=== PATIENT | female | born 1980 | race Caucasian/White ===

== ENCOUNTER 2017-11-17 13:18 | Outpatient (CLI) | payer OTHER ==
[2015-06-22 12:49] VITALS: BP 155/113
--- NOTE | 2017-11-22 14:00 | OP Clinic Progress Note ---
REASON FOR VISIT: Tiffanie is seen in the clinic with complaints of nasal congestion and stuffiness , ear pain and discomfort, some imbalance, and a neck ache. She has had problems for easily over 15 years and has taken antihistamines on a regular basis. She considered it one time but did not go to see an director of physical security. She tried to use a Neti pot by irrigating her nose but was not able to do that. Although she can get air through her nose intermittently. Overall, the right and the left side bother her about the same, although it switches back and forth as far as her nasal obstructive symptoms and pressure and discomfort. She also has some headaches more over the right eyebrow. Clinically, she snores extremely heavily and may have sleep apnea. She declines sleep studies. Clinically, she has huge inferior turbinates and a mild septal deviation. PLAN: If the etiology is allergic or just more of a chronic rhinitis, it is difficult to tell at this point. Options of doing nothing, seeing an director of physical security, keep on taking medications, and having surgery have been given to her. She has tried Flonase and she may try an additional spray that she has but she is not sure of the name of it. She would like to go ahead and get a CT scan in 2 or 3 weeks and we can simply go back over her options. Seeing an director of physical security is clearly an option. I have pointed out the positive aspect of that and some sinonasal surgery also does not solve the nasal membrane issues, but almost always can obtain at least a significantly improved nasal airway. Again, over the next several weeks, she will consider her options and get a CT scan and we will review these choices again. cc: Dr. Beulah DONNELLY
== END 2017-11-17 13:20 ==
LOC: ENT 13:18
PROVIDERS: ATTEND Otolaryngology
DX: J32.9 Chronic sinusitis, unspecified (principal)
CPT/HCPCS: 99213

== ENCOUNTER 2017-12-08 14:35 | Outpatient (CLI) | payer OTHER ==
[2015-06-22 12:49] VITALS: BP 155/113
--- NOTE | 2017-12-13 10:26 | OP Clinic Progress Note ---
REASON FOR VISIT: This 37-year-old female was seen in clinic in follow up of her issues regarding rhinosinusitis, nasal airway obstruction, cephalgia, facial pressure and discomfort, postnasal drainage, mouth breathing, and snoring as her issues, in addition to other complaints. She has significant major facial pressure and discomfort. She has mouth breathing and snoring. She has diffuse rhinitis. I reviewed her CT with her which has a fairly significant amount of mucosal thickening diffusely through the nose, some septal deviation, and some generalized mucosal thickening in both the ethmoid and maxillary sinuses. PLAN: I went over options and choices including doing nothing at all, seeing an major gifts officer with the idea of taking desensitization shots, ongoing use of medications, which would be decongestants, antihistamines, topical steroids, nasal sprays, nasal irrigations, Montelukast, and having nasal surgery. Risks and relative indications both for the surgery and all the other treatment modalities were reviewed. The patient understands that she is more than welcome to additional opinions. At least, she has a good understanding. Again , I went over the aspects of surgery so that she could have a clearer option of choices. She understands there is absolutely no guarantee of improvement, a small chance of nasal septal perforation, intraorbital and intracranial complications, postoperative pain and discomfort, washing and cleaning. Patient states she has a pretty good understanding. I encouraged her to discuss this with her spouse and if she comes back to come with her spouse and I would be more than happy to go over the same issues and would encourage her to do so. She is not given a specific appointment to come back but if she chooses to, it will be by her own election. cc: Dr. Beulah DONNELLY
== END 2017-12-08 14:36 ==
LOC: ENT 14:35
PROVIDERS: ATTEND Otolaryngology
DX: J32.9 Chronic sinusitis, unspecified (principal); J34.89 Other specified disorders of nose and nasal sinuses
CPT/HCPCS: 99213

== ENCOUNTER 2018-10-11 14:54 | Emergency (ER) | payer OTHER ==
[2018-10-11] MEDS ORDERED: 0.9 % SODIUM CHLORIDE 1,000 ML IV ONE (15:13)
[2018-10-11] MEDS ORDERED: ONDANSETRON HCL/PF 4 MG/ 2ML VIAL IVP ONE (15:13)
--- NOTE | 2018-10-11 15:20 | ED Physician Documentation ---
Abdominal Pain - HISTORIAN Historian: patient - HPI Stated Complaint: vomiting/abdominal pain Chief Complaint: Abdominal Pain Additonal Information: Patient presents to ED with a 2 day history of nausea/vomiting and RLQ abdominal pain. Patient states she has not been able to keep anything down. She denies fever but states she has had chills. She denies hematemesis, BRBPR, or black tarry stools. No sick contacts. Onset: days ago (3) Duration: persistent, worse Timing: still present Context: denies: out of country travel, bad food Severity: moderate Quality: cramping, sharp, stabbing Associated Symptoms: nausea, vomiting. denies: fever, chills, diarrhea Exacerbated by: movements Relieved by: supine, remaining still - ROS CONST: no problems GI/: none CVS/RESP: none EYES/ENT: none MS/SKIN/LYMPH: denies: rash, swollen glands NEURO/PSYCH: denies: headache - SOCIAL HX Smoking History: non-smoker Alcohol Use: none Drug Use: none - FAMILY HX Family History: none - PAST HX Past History: none Ischemic Bowel Risk Factors: none Surgeries/Procedures: hysterectomy Home Medications: Ambulatory Orders Medication Instructions Recorded Promethazine HCl [Phenergan] 25 mg PO Q6 #40 tablet 10/11/18 Allergies/Adverse Reactions: Allergies Allergy/AdvReac Type Severity Reaction Status Date / Time Penicillins Allergy Verified 10/11/18 15:54 - VITAL SIGNS Vital Signs: Vital Signs Temp Pulse Resp BP Pulse Ox 98.8 F 111 H 16 151/107 94 10/11/18 14:58 10/11/18 14:58 10/11/18 14:58 10/11/18 14:58 10/11/18 14:58 - REVIEWED ASSESSMENTS Nursing Assessment Reviewed: Yes Vitals Reviewed: Yes ED Results Lab/Radiology - Lab Results Lab Results: Lab Results 10/11/18 10/11/18 10/11/18 Unknown Unknown Unknown WBC 8.70 K/ul K/ul (4.00-12.00) RBC 5.22 M/ul H M/ul (3.90-5.20) Hgb 16.0 g/dL g/dL (12.0-16.0) Hct 47.6 % H % (34.5-46.5) MCV 91.0 fl fl (80.0-100.0) MCH 30.7 pg pg (28.0-34.0) MCHC 33.7 g/dL g/dL (30.0-36.0) RDW 13.2 % % (11.3-14.3) Plt Count 285 K/mm3 K/mm3 (130-400) Neut % (Auto) 72.9 % % (39.0-79.0) Lymph % (Auto) 17.0 % % (16.0-50.0) Garfield % (Auto) 85.0 % H % (0.0-11.0) Eos % (Auto) 1.1 % % (0.0-6.8) Baso % (Auto) 0.5 (0.0-1.5) Neut # (Auto) 6.4 # k/uL # k/uL (1.4-7.7) Lymph # (Auto) 1.5 # k/uL # k/uL (0.6-4.0) Garfield # (Auto) 0.7 # k/uL # k/uL (0.0-0.9) Eos # (Auto) 0.1 # k/uL # k/uL (0.0-0.6) Baso # (Auto) 0.0 # k/uL # k/uL (0.0-0.5) Sodium 138 mmol/L mmol/L (136-145) Potassium 3.6 mmol/L mmol/L (3.5-5.1) Chloride 100 mmol/L mmol/L (98-107) Carbon Dioxide 26 mmol/L mmol/L (22-30) BUN 14 mg/dL mg/dL (7-17) Creatinine 0.90 mg/dL mg/dL (0.52-1.04) Estimated Creat Clear 167 Est GFR ( Amer) > 60 (60 - ) Est GFR (Non-Af Amer) > 60 (60 - ) Glucose 103 mg/dL mg/dL (74-106) Calcium 9.1 mg/dL mg/dL (8.4-10.2) Total Bilirubin 0.5 mg/dL mg/dL (0.2-1.3) AST 34 U/L U/L (15-46) ALT 28 U/L U/L (13-69) Alkaline Phosphatase 116 U/L U/L (38-126) Total Protein 8.1 g/dL g/dL (6.3-8.2) Albumin 4.3 g/dL g/dL (3.5-5.0) Lipase 110 U/L U/L (23-300) - Radiology Radiology Impressions: Comparison exams: None available Technique: CT Abdomen/pelvis with IV protocol. Findings: Liver demonstrates mild diffuse low attenuation. No central lesion. Spleen, adrenals, pancreas, kidneys and gallbladder are without gross irregularity given exam technique. No gallstone. No suspicious renal calcifications. Ureters are nondilated in their course through the abdomen and pelvis. No central calcifications. Bladder margin within normal limits. Abdominal aorta without aneurysm or peripheral atherosclerotic disease. Cardiac silhouette is not enlarged. No pericardial effusion. Bowel unopacified limiting evaluation. No abnormal dilation. Stool within the large bowel limiting sensitivity. No mesenteric inflammatory changes or free fluid. Appendix is visualized and is without inflammatory changes. Absent uterus. Osseous structures appropriate for age. Lung bases without infiltrate. No effusion. Impression: No acute upper abdominal organ inflammatory process. No abnormal bowel dilation or inflammation. No evidence for appendiceal inflammatory changes. No gallstone. Fatty liver No suspicious renal calcifications or abnormal ureteric dilation. No lung base consolidation or effusion. Electronically signed on Oct 11, 2018 5:09:02 PM VEHICLE CHECK IN CLERK by: Nima Baker - Orders Orders: ED Orders Category Date Time Status Place IV Lock 1T Care 10/11/18 15:[address] ABD & PELVIS W/ CON Stat Exams 10/11/18 Taken CBC/PLATELET/DIFF Routine Lab 10/11/18 Completed CMP Routine Lab 10/11/18 Completed LIPASE Stat Lab 10/11/18 Completed UA W/MICRO IF INDICATED Routine Lab 10/11/18 15:12 Ordered 0.9 % Sodium Chloride [Normal Saline] 1,000 ml Med 10/11/18 15:13 Discontinued IV Q1H 0.9 % Sodium Chloride [Sodium Chloride] 50 ml Med 10/11/18 15:46 Discontinued IV .STK-MED Ondansetron HCl/Pf [Zofran 4 mg/2 ml] Med 10/11/18 15:13 Discontinued 4 mg IVP NOW ONE Promethazine HCl [Phenergan] Med 10/11/18 15:46 Discontinued 25 mg .ROUTE .STK-MED ONE Promethazine HCl [Phenergan] 12.5 mg Med 10/11/18 15:35 Discontinued 0.9 % Sodium Chloride [Sodium Chloride] 50 ml IV NOW Abdominal Pain Physical Exam - Physical Exam General Appearance: no acute distress, alert EENT: HYUN NECK: supple RESPIRATORY: no resp distress, chest non-tender, breath sounds normal CVS: reg rate & rhythm, heart sounds normal ABDOMEN: soft, no distension, tenderness (RLQ) BACK: no CVA tenderness SKIN: warm/dry EXTREMITIES: non-tender, no edema NEURO: oriented X3, CN's nml as tested, motor nml Vital Signs: Vital Signs Temp Pulse Resp BP Pulse Ox 98.8 F 111 H 16 151/107 94 10/11/18 14:58 10/11/18 14:58 10/11/18 14:58 10/11/18 14:58 10/11/18 14:58 Discharge Clincal Impression: Viral gastroenteritis Prescriptions: Promethazine HCl [Phenergan] 25 mg PO Q6 #40 tablet Referrals: Beulah Vallejo MD [Primary Care Provider] - 2 Days Additional Instructions: 1. Drink gatorade, sports drinks, sprite 2. Take Promethazine as needed for nausea 3. Tylenol and/or ibuprofen as needed for fever/pain 4. Return to ED if vomiting persists for more than 2 more days 4. Follow up with PCP within 1 week. Condition: Stable Disposition: 01 HOME, SELF-CARE Decision to Admit: NO Date of Decison to Admit: 10/11/18 Decision Time: 17:23
[2018-10-11 15:25] LABS: BASOPHILS % 0.5 (0.0-1.5); EOSINOPHILS % 1.1 % (0.0-6.8); MEAN CORPUSCULAR HEMOGLOBIN 30.7 pg (28.0-34.0); NEUTROPHILS # 6.4 # k/uL (1.4-7.7)
[2018-10-11] MEDS ORDERED: PROMETHAZINE HCL 12.5 MG in 0.9 % SODIUM CHLORIDE 50 ML IV ONE (15:35)
[2018-10-11] MEDS ORDERED: 0.9 % SODIUM CHLORIDE 50 ML IV ONE (15:46)
[2018-10-11] MEDS ORDERED: PROMETHAZINE HCL 25 MG/ML VIAL ONE (15:46)
[2018-10-11 16:26] LABS: eGFR (Non-African) > 60
--- NOTE | 2018-10-11 17:24 | Diagnostic Imaging Report ---
JOHNNIE JONES [facility] [place] [facility] [address] [facility] [address] [place], [place]. [address] Report Submission Date: Oct 11, 2018 5:09:02 PM JIG MILL OPERATOR Patient Study Name: ENRIQUETA GERBER Date: Oct 11, 2018 4:31:27 PM JIG MILL OPERATOR Modality Type: CT Gender: F Description: CT ABD PELVIS W/ CON : 84 Institution: [facility] Physician: JOHNNIE JONES Examination: CT Abdomen/pelvis History: SEVERE RLQ PAIN WITH NAUSEA AND VOMITING TODAY. HX OF TOTAL HYSTERECTOMY. (Hx) Comparison exams: None available Technique: CT Abdomen/pelvis with IV protocol. Findings: Liver demonstrates mild diffuse low attenuation. No central lesion. Spleen, adrenals, pancreas, kidneys and gallbladder are without gross irregularity given exam technique. No gallstone. No suspicious renal calcifications. Ureters are nondilated in their course through the abdomen and pelvis. No central calcifications. Bladder margin within normal limits. Abdominal aorta without aneurysm or peripheral atherosclerotic disease. Cardiac silhouette is not enlarged. No pericardial effusion. Bowel unopacified limiting evaluation. No abnormal dilation. Stool within the large bowel limiting sensitivity. No mesenteric inflammatory changes or free fluid. Appendix is visualized and is without inflammatory changes. Absent uterus. Osseous structures appropriate for age. Lung bases without infiltrate. No effusion. Impression: No acute upper abdominal organ inflammatory process. No abnormal bowel dilation or inflammation. No evidence for appendiceal inflammatory changes. No gallstone. Fatty liver No suspicious renal calcifications or abnormal ureteric dilation. No lung base consolidation or effusion. Electronically signed on Oct 11, 2018 5:09:02 PM JIG MILL OPERATOR by: Nima DONNELLY
[2018-10-11] MEDS ORDERED: KETOROLAC TROMETHAMINE 30 MG/1ML VIAL IVP ONE (17:34)
[2018-10-11] MEDS ORDERED: KETOROLAC TROMETHAMINE 30 MG/1ML VIAL ONE (17:35)
[2018-10-11 17:44] VITALS: BP 143/91
[2018-10-12 08:26] LABS: OCCULT BLOOD,URINE TRACE-INTACT (NEGATIVE); PH URINE 5.5 (5.0 - 8.0); UROBILINOGEN URINE 0.2 Eu (0.2-1.0)
== END 2018-10-11 17:42 | disposition home or self-care (01) ==
LOC: ED 14:54
DX: A08.4 Viral intestinal infection, unspecified (principal)
CPT/HCPCS: 36415; 74177; 80053; 81002; 83690; 85025; 96365; 96375; 99283; 99284; J1885; J2405; J2550; J7030; Q9967; S1016